=== PATIENT | male | born 1940 ===

== ENCOUNTER 2017-01-06 07:56 | Emergency (ER) | payer MEDICARE ==
[2017-01-06 08:16] VITALS: RESP 16; O2SAT 98
[2017-01-06] MEDS ORDERED: Sodium Chloride 0.9% 500 ML IV ONE (08:23)
--- NOTE | 2017-01-06 08:25 | ED PDOC ---
HPI: Abdomen Time Seen by Provider: 01/06/17 08:17 Chief Complaint (Nursing): GI Problem Chief Complaint (Provider): Generalized abdominal pain History Per: Patient History/Exam Limitations: no limitations Onset/Duration Of Symptoms: Days (1) Outside of [place] travel?: No Current Symptoms Are (Timing): Still Present Severity: Moderate Location Of Pain/Discomfort: RLQ Quality Of Discomfort: "Pain", Gas Associated Symptoms: denies: Nausea, Vomiting, Diarrhea, Urinary Symptoms Additional History Per: Patient Additional Complaint(s): The pt. is a 76yo male with PMHx of HTN, CAD presents to the ED for evaluation of abdominal pain for the past day. Pt reports feeling gassy debora mild pain in his right lower quadrant. Denies any urinary symptoms, nausea, vomiting, diarrhea. States he took Pepto Bismol with little relief. Offers no additional medical complaints. PMD: Dr. Ashby Past Medical History Reviewed: Historical Data, Nursing Documentation, Vital Signs Vital Signs: Last Vital Signs Temp 98.9 F 01/06/17 08:14 Pulse 53 L 01/06/17 09:06 Resp 16 01/06/17 08:14 BP 144/87 01/06/17 08:14 Pulse Ox 98 01/06/17 09:06 - Medical History PMH: CAD, HTN Denies: HIV, Chronic Kidney Disease - Surgical History Surgical History: Appendectomy - Family History Family History: States: Unknown Family Hx - Home Medications Home Medications: Ambulatory Orders Medication Instructions Recorded Aspirin [Aspirin Chewable] 81 mg PO DAILY #0 chew 05/17/16 Lipase/Protease/Amylase [Betty Fisher 1 each PO TID #0 capsule. 05/17/16 24,000 Units Capsule] Tamsulosin [Flomax] 0.4 mg PO DAILY #0 cap 05/17/16 amLODIPine [Norvasc] 5 mg PO DAILY #0 tab 05/17/16 Acetaminophen [Tylenol Extra 500 mg PO Q6 #20 tablet 08/07/16 Strength] Amoxicillin 875 mg PO BID #14 tablet 08/07/16 Guaifenesin [Mucinex] 600 mg PO BID #20 tab.er.12h 08/07/16 Famotidine [Pepcid] 20 mg PO DAILY #20 tab 01/06/17 - Allergies Allergies/Adverse Reactions: Allergies Allergy/AdvReac Type Severity Reaction Status Date / Time No Known Allergies Allergy Verified 08/07/16 12:24 Review of Systems ROS Statement: Except As Marked, All Systems Reviewed And Found Negative Gastrointestinal: Positive for: Abdominal Pain. Negative for: Nausea, Vomiting , Diarrhea, Hematochezia Genitourinary Male: Negative for: Dysuria, Frequency Physical Exam - Reviewed Nursing Documentation Reviewed: Yes Vital Signs Reviewed: Yes - Physical Exam Appears: Positive for: Well, Non-toxic, No Acute Distress Head Exam: Positive for: ATRAUMATIC, NORMAL INSPECTION, NORMOCEPHALIC Skin: Positive for: Normal Color Eye Exam: Positive for: Normal appearance Neck: Positive for: Normal Cardiovascular/Chest: Positive for: Regular Rate, Rhythm Respiratory: Negative for: Respiratory Distress Gastrointestinal/Abdominal: Positive for: Soft, Tenderness (non-focal tenderness ) Neurologic/Psych: Positive for: Alert, Oriented - Laboratory Results Result Diagrams: 01/06/17 08:50 01/06/17 08:50 - ECG ECG: Positive for: Interpreted By Me, Viewed By Me ECG Rhythm: Positive for: Sinus Bradycardia. Negative for: ST/T Changes Rate: 53 O2 Sat by Pulse Oximetry: 98 (RA) Pulse Ox Interpretation: Normal Medical Decision Making Medical Decision Making: Time: 819 Impression: Abdominal pain Plan: * EKG * CMP * Lipase * Troponin I * CBC * Toradol * IV Fluids Scribe Attestation: Documented by Toña Rucker acting as a scribe for José Miguel Horan DO. Provider Attestation: All medical record entries made by the Scribe were at my direction and personally dictated by me. I have reviewed the chart and agree that the record accurately reflects my personal performance of the history, physical exam, medical decision making, and the department course for this patient. I have also personally directed, reviewed, and agree with the discharge instructions and disposition. Disposition - Clinical Impression Clinical Impression: Abdominal pain - Disposition Referrals: Nasir Branch MD, PhD [Staff Provider] - [facility] [Outside] [facility] [employer] [Outside] Disposition Time: 12:10 Condition: STABLE Additional Instructions: please follow up with clinic/your doctor and specialist. return to er with worsening symptoms or concerns Prescriptions: Famotidine [Pepcid] 20 mg PO DAILY #20 tab Instructions: Abdominal Pain (ED) Print Language: SWEDISH
[2017-01-06 09:05] LABS: BASO % 0.9 % (0.0-2.0); EOS # 0.2 K/uL (0.0-0.7); EOS % 3.4 % (0.0-4.0); HEMATOCRIT 44.4 % (35.0-51.0); LYMPH # 1.2 K/uL (1.0-4.3); LYMPH % 24.3 % (20.0-40.0); MEAN CELL VOLUME 92.7 fl (80.0-94.0); MEAN CORPUSCULAR HEMOGLOBIN 31.4 pg (27.0-31.0); MEAN CORPUSCULAR HGB CONC 33.9 g/dL (33.0-37.0); MONO # 0.5 K/uL (0.0-0.8); MONO % 10.7 % (0.0-10.0); NEUT % 60.7 % (50.0-75.0); NRBC % 0.2 % (0.0-0.0); RED CELL DISTRIBUTION WIDTH 14.7 % (11.5-14.5)
[2017-01-06 09:08] VITALS: PULSE 53
[2017-01-06 09:12] LABS: ALB/GLOB RATIO 1.4 (1.0-2.1); ALKALINE PHOSPHATASE 76 U/L (38-126); ALT/SGPT 39 U/L (21-72); AST/SGOT 40 U/L (17-59); BILIRUBIN,TOTAL 0.7 mg/dl (0.2-1.3); BLOOD UREA NITROGEN 22 mg/dl (9-20); CALCIUM 9.2 mg/dL (8.4-10.2); CARBON DIOXIDE 25 mmol/L (22-30); CHLORIDE 105 mmol/L (98-107); GFR AFRICAN-AMERICAN > 60; GLUCOSE,RANDOM 88 mg/dL (75-110); LIPASE 120 U/L (23-300); POTASSIUM 4.5 MMOL/L (3.6-5.0); SODIUM 140 mmol/l (132-148)
[2017-01-06 10:35] LABS: RBC URINE 3 /hpf (0-3); URINE BACTERIA RARE (<OCC); URINE BILIRUBIN NEGATIVE (NEGATIVE); URINE BLOOD NEGATIVE (NEGATIVE); URINE COLOR STRAW (YELLOW); URINE GLUCOSE (UA) NEG (Normal); URINE KETONE NEGATIVE (NEGATIVE); URINE LEUKOCYTE ESTERASE NEG Leu/uL (Negative); URINE PROTEIN NEGATIVE (NEGATIVE); URINE UROBILINOGEN 0.2-1.0 mg/dL (0.2-1.0); WBC URINE 1 /hpf (0-5)
[2017-01-06] MEDS ORDERED: Iohexol 300 100 ML IJ ONE (10:43)
[2017-01-06] MEDS ORDERED: Sodium Chloride 0.9% 50 ML IV ONE (10:44)
--- NOTE | 2017-01-06 12:11 | CT ---
PROCEDURE: CT Abdomen and Pelvis with contrast HISTORY: abd pain, diarrhea COMPARISON: None. TECHNIQUE: Contrast dose: 100 cc of Omnipaque 300 Radiation dose: Total exam DLP = 777 mGy-cm. This CT exam was performed using one or more of the following dose reduction techniques: Automated exposure control, adjustment of the mA and/or kV according to patient size, and/or use of iterative reconstruction technique. FINDINGS: LOWER THORAX: Moderate hiatal hernia. LIVER: 3 centimeter left hepatic cyst.. No gross lesion or ductal dilatation. GALLBLADDER AND BILE DUCTS: Unremarkable. PANCREAS: Unremarkable. No gross lesion or ductal dilatation. SPLEEN: Unremarkable. ADRENALS: Unremarkable. No mass. KIDNEYS AND URETERS: Unremarkable. No hydronephrosis. No solid mass. VASCULATURE: Unremarkable. No aortic aneurysm. BOWEL: Colonic diverticulosis.. No obstruction. No gross mural thickening. APPENDIX: Normal appendix. PERITONEUM: Unremarkable. No free fluid. No free air. LYMPH NODES: Unremarkable. No enlarged lymph nodes. BLADDER: Unremarkable. REPRODUCTIVE: Prostate enlargement. BONES: No acute fracture. OTHER FINDINGS: None. IMPRESSION: No acute pathology.
[2017-01-06 12:12] VITALS: BP 142/77; TEMP 98.6
--- NOTE | 2017-01-07 08:48 | CARD ---
APPROVED REPORT EKG Measurement Heart [id number] <Conclusion> Sinus bradycardia Otherwise normal ECG
== END 2017-01-06 12:29 | disposition home or self-care (01) ==
LOC: H.ER 07:56
DX: R10.9 Unspecified abdominal pain (principal); R19.7 Diarrhea, unspecified; I10 Essential (primary) hypertension; I25.10 Atherosclerotic heart disease of native coronary artery without angina pectoris; Z79.82 Long term (current) use of aspirin
CPT/HCPCS: 74177; 80053; 81003; 83690; 84484; 85025; 93005; 96374; 99284; J1885; J7040; Q9967

== ENCOUNTER 2017-01-11 11:17 | Emergency (ER) | payer MEDICARE ==
[2017-01-11 11:21] VITALS: BMI 29.2
--- NOTE | 2017-01-11 12:34 | ED PDOC ---
HPI: General Adult Time Seen by Provider: 01/11/17 11:44 Chief Complaint (Nursing): Dizziness/Lightheaded Chief Complaint (Provider): Dizziness/Lightheaded History Per: Patient History/Exam Limitations: no limitations Onset/Duration Of Symptoms: Hrs (x2-3 hours) Current Symptoms Are (Timing): Better Additional Complaint(s): 76 y/o male presents to the emergency department with a complaint of a dizziness with lightheadedness x2-3 hours yesterday, 01/10/2017. Associated with loss of coordination with movement because as he was walking outside he noted that his body scraped against a parked car. Patient states symptoms had resolved since. Denies chest pain, shortness of breath, and abdominal pain. Of note, patient was seen in the ER on 01/06/2017 and completed an Abdomen/Pelvis CT Scan and was then discharged. PMD: Dr. Ashby Past Medical History Reviewed: Historical Data, Nursing Documentation, Vital Signs Vital Signs: Last Vital Signs Temp 98.2 F 01/11/17 11:21 Pulse 73 01/11/17 11:21 Resp 20 01/11/17 11:21 BP 118/85 01/11/17 11:21 Pulse Ox 96 01/11/17 15:11 - Medical History PMH: CAD, HTN Denies: HIV, Chronic Kidney Disease Other PMH: Angina - Surgical History Surgical History: Appendectomy - Family History Family History: States: Diabetes - Social History Current smoker - smoking cessation education provided: No Alcohol: None Drugs: Denies - Home Medications Home Medications: Ambulatory Orders Medication Instructions Recorded Aspirin [Aspirin Chewable] 81 mg PO DAILY #0 chew 05/17/16 Lipase/Protease/Amylase [Betty Fisher 1 each PO TID #0 capsule. 05/17/16 24,000 Units Capsule] Tamsulosin [Flomax] 0.4 mg PO DAILY #0 cap 05/17/16 amLODIPine [Norvasc] 5 mg PO DAILY #0 tab 05/17/16 Acetaminophen [Tylenol Extra 500 mg PO Q6 #20 tablet 08/07/16 Strength] Amoxicillin 875 mg PO BID #14 tablet 08/07/16 Guaifenesin [Mucinex] 600 mg PO BID #20 tab.er.12h 08/07/16 Famotidine [Pepcid] 20 mg PO DAILY #20 tab 01/06/17 - Allergies Allergies/Adverse Reactions: Allergies Allergy/AdvReac Type Severity Reaction Status Date / Time No Known Allergies Allergy Verified 08/07/16 12:24 Review of Systems ROS Statement: Except As Marked, All Systems Reviewed And Found Negative Cardiovascular: Negative for: Chest Pain Respiratory: Negative for: Shortness of Breath Gastrointestinal: Negative for: Abdominal Pain Neurological: Positive for: Dizziness (described as lightheadedness) Physical Exam - Reviewed Nursing Documentation Reviewed: Yes Vital Signs Reviewed: Yes - Physical Exam Appears: Positive for: Non-toxic, No Acute Distress Head Exam: Positive for: ATRAUMATIC, NORMOCEPHALIC Skin: Positive for: Normal Color, Warm, Dry Neck: Positive for: Normal, Supple Cardiovascular/Chest: Positive for: Regular Rate, Rhythm. Negative for: Murmur Respiratory: Positive for: Normal Breath Sounds. Negative for: Accessory Muscle Use, Respiratory Distress Neurologic/Psych: Positive for: Alert (nonfocal nuero exam), Oriented, Motor/ Sensory Deficits (Grossly intact). Negative for: Other (Negative Romberg's exam ) - Laboratory Results Result Diagrams: 01/11/17 12:35 01/11/17 12:35 - ECG O2 Sat by Pulse Oximetry: 96 (RA) Pulse Ox Interpretation: Normal Medical Decision Making Medical Decision Making: Time: 11:44 Initial impression: Dizziness with loss of coordination with possible TIA Initial plan: --Head w/o contrast (CT) --Electrocardiogram Stat --B-Type Natriuretic Peptide --COMP Metabolic Panel --Creatine Phosphokinase --Troponin I Stat --EKG-ED (EDNURTX) Stat --CBC w/ differential --Partial Thromboplastin Time COAG --Prothrombin Time (COAG) --Chest Portable (RAD) --Chest Two Views (PA/LAT) (RAD) --Channel Process Plant Operator CONT --IV Insertion --AccuCheck --Urinalysis Stat --Revaluation Time: 12:42 --Head CT FINDINGS: HEMORRHAGE: No acute parenchymal, subarachnoid or extra-axial hemorrhage. BRAIN: Mild chronic periventricular white matter ischemic changes are present. . Note that the possibility of a small on early acute infarct may be CT occult . Clinical correlation recommended to determine whether additional imaging should be performed if patient is eligible for tPA therapy. Mild to moderate central volume loss evidenced by slight disproportionate enlargement of the ventricles as compared sulci. Vascular calcifications are present. VENTRICLES: No obstructive type hydrocephalus. CALVARIUM: There are no acute calvarial fractures. PARANASAL SINUSES: Unremarkable as visualized. No significant inflammatory changes. MASTOID AIR CELLS: Unremarkable as visualized. No inflammatory changes. OTHER FINDINGS: None. IMPRESSION: No acute intracranial hemorrhage. Mild chronic white matter ischemic changes. Note that the possibility of a small acute infarct cannot be excluded based on this study. Time: 12:59 --Chest X-ray (RAD) FINDINGS: LUNGS: Poor inspiration with low lung volumes, and mild crowded bronchovascular markings/bibasilar atelectasis. PLEURA: No significant pleural effusion identified. No pneumothorax apparent. CARDIOVASCULAR: Normal. OSSEOUS STRUCTURES: Minor chronic anterior wedge deformities of a few mid thoracic segments. Mild multilevel degenerative spondylosis of the thoracic spine VISUALIZED UPPER ABDOMEN: Normal. OTHER FINDINGS: None. IMPRESSION: Poor inspiration with low lung volumes, and mild crowded bronchovascular markings/bibasilar atelectasis. 3:21 PM--I discussed pt with PMD Dr. Ashby and with neurologist Dr. Jennifer Cummins. State if pt not orthostatic, then d/c home and follow up in their office. Scribe Attestation: Documented by Emelina Benjamin, acting as a scribe for Javier Judd MD. Provider Scribe Attestation: All medical record entries made by the Scribe were at my direction and personally dictated by me. I have reviewed the chart and agree that the record accurately reflects my personal performance of the history, physical exam, medical decision making, and the department course for this patient. I have also personally directed, reviewed, and agree with the discharge instructions and disposition. Disposition - Clinical Impression Clinical Impression: Dizziness Counseled Patient/Family Regarding: Studies Performed, Diagnosis, Need For Followup - Disposition Referrals: Jamil Cummins MD [Staff Provider] - Moiz Ashby MD [Staff Provider] - Disposition: Routine/Home Disposition Time: 14:54 Condition: STABLE Additional Instructions: Mr. Mosqueda, thank you for letting us take care of you today. Return to the ER if your symptoms worsen or if any problems or if any new symptoms. You need to follow up with two physicians: 1) Dr. Ashby - call his office to make an appointment 2) Dr. Ara Cummins (neurologist) - call his office to make an appointment These physicians phone numbers are listed below. Drink plenty of fluids--you are slightly dehydrated. Instructions: Lightheadedness (ED), Dizziness (ED) Forms: [facility] (Citizen [place]) Print Language: TELUGU - POA Present On Arrival: None
--- NOTE | 2017-01-11 12:44 | CT ---
PROCEDURE: CT HEAD WITHOUT CONTRAST. HISTORY: dizziness/trouble coordinating movements yesterday COMPARISON: Comparison made with CT scan brain 05/16/2016. TECHNIQUE: Axial computed tomography images were obtained through the head/brain without intravenous contrast. Radiation dose: Total exam DLP = 805.15 mGy-cm. This CT exam was performed using one or more of the following dose reduction techniques: Automated exposure control, adjustment of the mA and/or kV according to patient size, and/or use of iterative reconstruction technique. FINDINGS: HEMORRHAGE: No acute parenchymal, subarachnoid or extra-axial hemorrhage. BRAIN: Mild chronic periventricular white matter ischemic changes are present. . Note that the possibility of a small on early acute infarct may be CT occult . Clinical correlation recommended to determine whether additional imaging should be performed if patient is eligible for tPA therapy. Mild to moderate central volume loss evidenced by slight disproportionate enlargement of the ventricles as compared sulci. Vascular calcifications are present. VENTRICLES: No obstructive type hydrocephalus. CALVARIUM: There are no acute calvarial fractures. PARANASAL SINUSES: Unremarkable as visualized. No significant inflammatory changes. MASTOID AIR CELLS: Unremarkable as visualized. No inflammatory changes. OTHER FINDINGS: None. IMPRESSION: No acute intracranial hemorrhage. Mild chronic white matter ischemic changes. Note that the possibility of a small acute infarct cannot be excluded based on this study.
[2017-01-11 12:50] LABS: BASO # 0.1 K/uL (0.0-0.2); BASO % 0.9 % (0.0-2.0); EOS # 0.1 K/uL (0.0-0.7); EOS % 2.3 % (0.0-4.0); HEMATOCRIT 42.6 % (35.0-51.0); LYMPH # 1.3 K/uL (1.0-4.3); LYMPH % 20.5 % (20.0-40.0); MEAN CELL VOLUME 92.2 fl (80.0-94.0); MEAN CORPUSCULAR HEMOGLOBIN 31.4 pg (27.0-31.0); MEAN PLATELET VOLUME 9.3 fl (7.2-11.7); MONO # 0.7 K/uL (0.0-0.8); MONO % 11.7 % (0.0-10.0); NEUT # 4.1 K/uL (1.8-7.0); NEUT % 64.6 % (50.0-75.0); RED CELL DISTRIBUTION WIDTH 14.8 % (11.5-14.5); WHITE BLOOD COUNT 6.3 K/uL (4.8-10.8)
--- NOTE | 2017-01-11 13:01 | RAD ---
HISTORY: dizziness COMPARISON: Comparison chest 05/16/2016 TECHNIQUE: Chest PA and lateral FINDINGS: LUNGS: Poor inspiration with low lung volumes, and mild crowded bronchovascular markings/bibasilar atelectasis. PLEURA: No significant pleural effusion identified. No pneumothorax apparent. CARDIOVASCULAR: Normal. OSSEOUS STRUCTURES: Minor chronic anterior wedge deformities of a few mid thoracic segments. Mild multilevel degenerative spondylosis of the thoracic spine VISUALIZED UPPER ABDOMEN: Normal. OTHER FINDINGS: None. IMPRESSION: Poor inspiration with low lung volumes, and mild crowded bronchovascular markings/bibasilar atelectasis.
[2017-01-11 13:03] LABS: PARTIAL THROMBOPLASTIN TIME 27.9 SECONDS (23.3-32.5)
[2017-01-11 13:05] LABS: ALB/GLOB RATIO 1.5 (1.0-2.1); ALKALINE PHOSPHATASE 53 U/L (38-126); ALT/SGPT 37 U/L (21-72); AST/SGOT 32 U/L (17-59); BILIRUBIN,TOTAL 0.4 mg/dl (0.2-1.3); BLOOD UREA NITROGEN 23 mg/dl (9-20); CALCIUM 9.6 mg/dL (8.4-10.2); CARBON DIOXIDE 26 mmol/L (22-30); CHLORIDE 104 mmol/L (98-107); GFR AFRICAN-AMERICAN 51; GLUCOSE,RANDOM 104 mg/dL (75-110); POTASSIUM 3.9 MMOL/L (3.6-5.0); SODIUM 143 mmol/l (132-148); TOTAL PROTEIN 7.5 G/DL (6.3-8.2)
[2017-01-11 19:42] VITALS: BP 126/75; PULSE 71; RESP 18; TEMP 98.4; O2SAT 98
--- NOTE | 2017-01-11 22:00 | CARD ---
APPROVED REPORT EKG Measurement Heart [id number] [id number] <Conclusion> Normal sinus rhythm Normal ECG
== END 2017-01-11 15:40 | disposition home or self-care (01) ==
LOC: H.ER 11:17
DX: R42 Dizziness and giddiness (principal); E86.0 Dehydration

== ENCOUNTER 2017-02-17 09:07 | Inpatient (IN) | payer MEDICARE ==
[2017-02-17 09:08] VITALS: BMI 29.2
[2017-02-17] MEDS ORDERED: Sodium Chloride 0.9% 1,000 ML IV STA (10:13)
[2017-02-17 10:36] LABS: BASO # 0.1 K/uL (0.0-0.2); BASO % 0.4 % (0.0-2.0); EOS # 0.1 K/uL (0.0-0.7); EOS % 0.3 % (0.0-4.0); HEMATOCRIT 38.5 % (35.0-51.0); LYMPH # 0.8 K/uL (1.0-4.3); LYMPH % 5.4 % (20.0-40.0); MEAN CELL VOLUME 91.3 fl (80.0-94.0); MEAN CORPUSCULAR HEMOGLOBIN 31.3 pg (27.0-31.0); MEAN CORPUSCULAR HGB CONC 34.3 g/dL (33.0-37.0); MEAN PLATELET VOLUME 9.4 fl (7.2-11.7); MONO # 0.7 K/uL (0.0-0.8); MONO % 4.9 % (0.0-10.0); NEUT # 13.6 K/uL (1.8-7.0); NRBC % 0.1 % (0.0-0.0); PLATELET COUNT 174 K/uL (130-400); RED CELL DISTRIBUTION WIDTH 15.3 % (11.5-14.5); WHITE BLOOD COUNT 15.3 K/uL (4.8-10.8)
[2017-02-17 10:40] LABS: RBC URINE 10 /hpf (0-3); URINE BACTERIA MANY (<OCC); URINE BILIRUBIN NEGATIVE (NEGATIVE); URINE BLOOD SMALL (NEGATIVE); URINE COLOR YELLOW (YELLOW); URINE GLUCOSE (UA) NEG (Normal); URINE KETONE 20 mg/dL (NEGATIVE); URINE LEUKOCYTE ESTERASE LARGE Leu/uL (Negative); URINE PROTEIN 100 mg/dL (NEGATIVE); URINE UROBILINOGEN 0.2-1.0 mg/dL (0.2-1.0); WBC URINE 229 /hpf (0-5)
[2017-02-17 11:27] LABS: ALB/GLOB RATIO 1.1 (1.0-2.1); ALKALINE PHOSPHATASE 58 U/L (38-126); ALT/SGPT 42 U/L (21-72); AST/SGOT 25 U/L (17-59); BILIRUBIN,TOTAL 0.5 mg/dl (0.2-1.3); BLOOD UREA NITROGEN 25 mg/dl (9-20); CALCIUM 8.3 mg/dL (8.4-10.2); CARBON DIOXIDE 23 mmol/L (22-30); CHLORIDE 103 mmol/L (98-107); GFR AFRICAN-AMERICAN > 60; GLUCOSE,RANDOM 160 mg/dL (75-110); POTASSIUM 3.7 MMOL/L (3.6-5.0); SODIUM 135 mmol/l (132-148); TOTAL PROTEIN 6.7 G/DL (6.3-8.2)
[2017-02-17 12:25] LABS: NEUTROPHIL 91 % (42-75); TOTAL CELLS COUNTED 100
[2017-02-17 13:12] LABS: VENOUS BLOOD GAS BASE EXCESS 6.3 mmol/L (0.0-2.0); VENOUS BLOOD GAS PCO2 23 mmHg (40-60); VENOUS BLOOD PH 7.66 (7.32-7.43)
--- NOTE | 2017-02-17 13:28 | ED PDOC ---
HPI: Male Pain Time Seen by Provider: 02/17/17 10:02 Chief Complaint (Nursing): Male Genitourinary Chief Complaint (Provider): Pain on urination x 2 days, no fever History Per: Patient History/Exam Limitations: no limitations Onset/Duration Of Symptoms: Days Current Symptoms Are (Timing): Still Present Quality Of Discomfort: Burning Associated Symptoms: Other (Eating and drinking normal at home). denies: Fever , Nausea, Vomiting, Loss Of Appetite Past Medical History Reviewed: Historical Data, Nursing Documentation, Vital Signs Vital Signs: Last Vital Signs Temp 99.6 F 02/17/17 09:15 Pulse 101 H 02/17/17 09:15 Resp 19 02/17/17 09:15 BP 124/64 02/17/17 09:15 Pulse Ox 95 02/17/17 09:15 - Medical History PMH: CAD, HTN Denies: HIV, Chronic Kidney Disease - Surgical History Surgical History: Appendectomy - Family History Family History: States: Unknown Family Hx, Diabetes - Living Arrangements Living Arrangements: With Family - Social History Current smoker - smoking cessation education provided: No Alcohol: None Drugs: Denies - Home Medications Home Medications: Ambulatory Orders Medication Instructions Recorded amLODIPine [Norvasc] 5 mg PO DAILY #0 tab 05/17/16 Ciprofloxacin [Cipro] 500 mg PO BID #14 tab 02/17/17 - Allergies Allergies/Adverse Reactions: Allergies Allergy/AdvReac Type Severity Reaction Status Date / Time No Known Allergies Allergy Verified 02/17/17 09:36 Review of Systems ROS Statement: Except As Marked, All Systems Reviewed And Found Negative Constitutional: Negative for: Fever, Chills Genitourinary Male: Positive for: Dysuria Physical Exam - Reviewed Nursing Documentation Reviewed: Yes Vital Signs Reviewed: Yes - Physical Exam Appears: Positive for: Well, Non-toxic, No Acute Distress Head Exam: Positive for: ATRAUMATIC, NORMAL INSPECTION, NORMOCEPHALIC Skin: Positive for: Normal Color, Warm, DRY Eye Exam: Positive for: Normal appearance ENT: Positive for: Normal ENT Inspection Neck: Positive for: Normal, Painless ROM Cardiovascular/Chest: Positive for: Regular Rate, Rhythm Respiratory: Positive for: Normal Breath Sounds. Negative for: Accessory Muscle Use, Respiratory Distress Gastrointestinal/Abdominal: Positive for: Normal Exam, Bowel Sounds, Soft. Negative for: Tenderness Back: Positive for: Normal Inspection. Negative for: L CVA Tenderness, R CVA Tenderness Extremity: Positive for: Normal ROM Neurologic/Psych: Positive for: Alert, Oriented - Laboratory Results Result Diagrams: 02/17/17 10:20 02/17/17 10:55 - ECG O2 Sat by Pulse Oximetry: 95 Medical Decision Making Medical Decision Making: Discussed importance of f/u with Dr. Tyson in 1-2 days and return to ER for fever, N/V, worsening pain, etc. Discussed with Dr. Ashby's partner, Dr. Coleman who states he can see him in the office tomorrow or saturday. Disposition - Clinical Impression Clinical Impression: Urinary tract infection - Patient ED Disposition Is Patient to be Admitted: No Counseled Patient/Family Regarding: Diagnosis, Need For Followup, Rx Given - Disposition Referrals: Moiz Ashby MD [Staff Provider] - Bertrand Coleman MD [Staff Provider] - Disposition: Routine/Home Disposition Time: 13:29 Condition: GOOD Prescriptions: Ciprofloxacin [Cipro] 500 mg PO BID #14 tab Instructions: Urinary Tract Infection in Men (ED) Print Language: SLOVENIAN
--- NOTE | 2017-02-17 15:09 | CP.PCM.HP ---
History of Present Illness - History of Present Illness History of Present Illness: 76 yo male with history of HTN brought by daughter because of dysuria of 3 days duration associated with feeling warm and diaphoresis the last 2 days. He admitted feeling febrile but was unable to get his body temperature. Present on Admission - Present on Admission Any Indicators Present on Admission: No History of DVT/PE: No History of Uncontrolled Diabetes: No Urinary Catheter: No Decubitus Ulcer Present: No Review of Systems - Review of Systems Systems not reviewed;Unavailable: Acuity of Condition (from those mentioned above, 12 point system review were negative by me) Past Patient History - Infectious Disease Hx of Infectious Diseases: None - Tetanus Immunizations Tetanus Immunization: Unknown - Past Medical History & Family History Past Medical History?: Yes Pertinent Family History: mother and brother had diabetes - Past Social History Smoking Status: Never Smoked Alcohol: None Drugs: Denies Home Situation {Lives}: With Family - CARDIAC Hx Hypertension: Yes - PULMONARY Hx Respiratory Disorders: No - NEUROLOGICAL Hx Neurological Disorder: No - HEENT Hx HEENT Problems: No - RENAL Hx Chronic Kidney Disease: No - ENDOCRINE/METABOLIC Hx Endocrine Disorders: No - HEMATOLOGICAL/ONCOLOGICAL Hx Human Immunodeficiency Virus (HIV): No - INTEGUMENTARY Hx Dermatological Problems: No - MUSCULOSKELETAL/RHEUMATOLOGICAL Hx Musculoskeletal Disorders: No Hx Falls: No - GASTROINTESTINAL Hx Gastrointestinal Disorders: No - GENITOURINARY/GYNECOLOGICAL Hx Genitourinary Disorders: Yes Hx Prostate Problems: Yes (BPH) - PSYCHIATRIC Hx Psychophysiologic Disorder: No Hx Substance Use: No - SURGICAL HISTORY Hx Appendectomy: Yes - ANESTHESIA Hx Anesthesia: Yes Hx Anesthesia Reactions: No Meds Home Medications: Home Medication List Medication Instructions Recorded Confirmed Type Ciprofloxacin [Cipro] 500 mg PO BID #14 tab 02/17/17 Rx Allergies/Adverse Reactions: Allergies Allergy/AdvReac Type Severity Reaction Status Date / Time No Known Allergies Allergy Verified 02/17/17 09:36 Physical Exam - Constitutional Appears: No Acute Distress - Head Exam Head Exam: ATRAUMATIC - Eye Exam Eye Exam: absent: Scleral icterus - ENT Exam ENT Exam: Mucous Membranes Moist - Neck Exam Neck exam: Negative for: Meningismus - Respiratory Exam Respiratory Exam: absent: Rhonchi, Wheezes, Respiratory Distress - Cardiovascular Exam Cardiovascular Exam: REGULAR RHYTHM, +S1, +S2 - GI/Abdominal Exam GI & Abdominal Exam: Soft. absent: Tenderness - Rectal Exam Rectal Exam: Deferred - Extremities Exam Extremities exam: Negative for: calf tenderness, pedal edema - Back Exam Back exam: NORMAL INSPECTION, rash noted, tenderness - Neurological Exam Neurological exam: Alert, Oriented x3 - Psychiatric Exam Psychiatric exam: Normal Affect - Skin Skin Exam: Dry, Intact Results - Vital Signs Recent Vital Signs: Last Vital Signs Temp 102 F H 02/17/17 14:19 Pulse 88 02/17/17 13:35 Resp 19 02/17/17 13:35 BP 143/73 02/17/17 13:35 Pulse Ox 98 02/17/17 13:35 - Labs Result Diagrams: 02/17/17 10:20 02/17/17 10:55 Assessment & Plan (1) Sepsis Status: Acute Comment: place on observation in med/surg. Tylenol 650mg PO q 4hrs prn for fever. blood and urine culture. continue Rocephin 1gm IV daily (2) Urinary tract infection Status: Acute Comment: continue Rocephin 1gm IV daily. follow up blood and urine culture (3) HTN (hypertension) Status: Acute Comment: BP stable. on Norvasc 5mg PO daily (4) DVT prophylaxis Status: Acute Comment: Lovenox 40mg SC daily
[2017-02-18 06:20] LABS: BASO % 0.3 % (0.0-2.0); BLOOD UREA NITROGEN 25 mg/dl (9-20); CALCIUM 8.2 mg/dL (8.4-10.2); CARBON DIOXIDE 23 mmol/L (22-30); CHLORIDE 109 mmol/L (98-107); EOS # 0.2 K/uL (0.0-0.7); EOS % 1.2 % (0.0-4.0); GFR AFRICAN-AMERICAN > 60; GLUCOSE,RANDOM 107 mg/dL (75-110); HEMATOCRIT 37.9 % (35.0-51.0); LYMPH % 6.9 % (20.0-40.0); MEAN CELL VOLUME 92.6 fl (80.0-94.0); MEAN CORPUSCULAR HEMOGLOBIN 31.2 pg (27.0-31.0); MEAN CORPUSCULAR HGB CONC 33.7 g/dL (33.0-37.0); MEAN PLATELET VOLUME 9.1 fl (7.2-11.7); MONO # 1.2 K/uL (0.0-0.8); MONO % 8.3 % (0.0-10.0); NEUT # 12.3 K/uL (1.8-7.0); NEUT % 83.3 % (50.0-75.0); RED CELL DISTRIBUTION WIDTH 14.9 % (11.5-14.5); SODIUM 139 mmol/l (132-148); WHITE BLOOD COUNT 14.7 K/uL (4.8-10.8)
[2017-02-18] MEDS: Enoxaparin 40 mg Syringe SC SCH (08:59)
--- NOTE | 2017-02-18 11:36 | CP.PCM.PN ---
Subjective - Date & Time of Evaluation Date of Evaluation: 02/18/17 Time of Evaluation: 11:10 - Subjective Subjective: Informed by RN that the patient climbed up on a chair and attempted to move his Television w/c was suspended on the wall and while getting off the chair, he slipped and fell and landed on his left arm. complains of left arm pain no open wound denies head trauma but RN found him lying on the floor Had feber last night still with dysuria denies CP no SOB no abdominal pain Objective - Vital Signs/Intake and Output Vital Signs (last 24 hours): Temp Pulse Resp BP Pulse Ox 98.5 F 66 18 122/72 95 02/18/17 08:39 02/18/17 08:59 02/18/17 08:39 02/18/17 08:59 02/18/17 08:39 - Medications Medications: Current Medications Acetaminophen (Tylenol 325mg Tab) 650 mg PO Q4 PRN PRN Reason: Fever >100.4 F Acetaminophen (Tylenol 325mg Tab) 650 mg PO Q6 PRN PRN Reason: Pain, Mild (1-3) Last Admin: 02/17/17 22:21 Dose: 650 mg Amlodipine Besylate (Norvasc) 5 mg PO DAILY [facility] Last Admin: 02/18/17 08:59 Dose: 5 mg Enoxaparin Sodium (Lovenox) 40 mg SC DAILY [facility] PRN Reason: Protocol Last Admin: 02/18/17 08:59 Dose: 40 mg Ceftriaxone Sodium 1 gm/ (Sodium Chloride) 100 mls @ 100 mls/hr IVPB DAILY [facility] - Labs Labs: 02/18/17 05:30 02/18/17 05:30 - Constitutional Appears: No Acute Distress - Head Exam Head Exam: NORMAL INSPECTION, NORMOCEPHALIC - Eye Exam Eye Exam: EOMI, Normal appearance Pupil Exam: NORMAL ACCOMODATION - ENT Exam ENT Exam: Mucous Membranes Moist, Normal External Ear Exam - Neck Exam Neck Exam: Full ROM. absent: Meningismus - Respiratory Exam Respiratory Exam: NORMAL BREATHING PATTERN. absent: Respiratory Distress - Cardiovascular Exam Cardiovascular Exam: REGULAR RHYTHM, +S1, +S2 - GI/Abdominal Exam GI & Abdominal Exam: Soft, Normal Bowel Sounds. absent: Tenderness - Extremities Exam Extremities Exam: Normal Capillary Refill. absent: Calf Tenderness, Pedal Edema Additional comments: left arm upper pain and tenderness on palpation pulses full - Back Exam Back Exam: Full ROM. absent: CVA tenderness (L), CVA tenderness (R) - Neurological Exam Neurological Exam: Alert, Awake, CN II-XII Intact, Oriented x3 Neuro motor strength exam: Right Upper Extremity: 5, Left Lower Extremity: 5, Right Lower Extremity: 5 - Psychiatric Exam Psychiatric exam: Normal Affect, Normal Mood - Skin Skin Exam: Dry, Normal Color, Warm Assessment and Plan (1) Sepsis Status: Acute (2) Urinary tract infection Status: Acute (3) Left humeral fracture Status: Acute (4) HTN (hypertension) Status: Chronic (5) DVT prophylaxis Status: Acute - Assessment and Plan (Free Text) Assessment: 76 y/o gent with hx of HTN, BPH, came in because of dysuria and fever, found to have UTI. He was admitted in [facility] Surg, started on IVF hydration and IV Ceftraixone. Today , he stood on a chair in an attempt to reposition the television in his room ( TV suspended up on the wall) and he fell . He sustained Left Humeral fracture. (1) Sepsis sec to UTI Status: Acute Pt came in febrile to 102, tachycardic normal lactate Urinalysis showed Pyuria, + leukoest Urine c/s Blood c/s Increase Ceftriaxone to 1 gram bid (2) Urinary tract infection Status: Acute (3) Left humeral fracture Status: Acute Xray of hemurus showed fracture Shoulder Xray, Elbow xray ; neg CVT of head and CT scpine : neg Ortho consult : Dr Womack Pt's daughter informed of fall and , xray result and treatment plan Cardio consult for preop eval ECHO (4) HTN (hypertension) Status: Chronic cont Norvacs (5) BPH - start Floamx (6) DVT prophylaxis Status: Acute Lovenox
--- NOTE | 2017-02-18 13:31 | CT ---
PROCEDURE: CT HEAD WITHOUT CONTRAST. HISTORY: Fall COMPARISON: Noncontrast head CT performed 01/11/17 TECHNIQUE: Axial computed tomography images were obtained through the head/brain without intravenous contrast. Radiation dose: Total exam DLP = 920.21 MGy-cm. This CT exam was performed using one or more of the following dose reduction techniques: Automated exposure control, adjustment of the mA and/or kV according to patient size, and/or use of iterative reconstruction technique. FINDINGS: HEMORRHAGE: No intracranial hemorrhage. BRAIN: Diffuse atrophy with prominence of the ventricles and sulci noted. No mass effect or edema. Dense intracranial atherosclerotic calcifications. Scattered white matter hypodensities, which are nonspecific, but often seen with chronic microvascular ischemic disease. Please note that MRI with diffusion imaging is more sensitive in the detection of acute ischemic event. VENTRICLES: No hydrocephalus. CALVARIUM: Unremarkable. PARANASAL SINUSES: Unremarkable as visualized. No significant inflammatory changes. MASTOID AIR CELLS: Unremarkable as visualized. No inflammatory changes. OTHER FINDINGS: None. IMPRESSION: No acute intracranial pathology identified. Generalized atrophy. Nonspecific white matter changes.
--- NOTE | 2017-02-18 13:34 | CT ---
PROCEDURE: CT Cervical Spine without contrast HISTORY: Fall COMPARISON: None available. TECHNIQUE: Axial computed tomography images were obtained of the cervical spine without the use of intravenous contrast. Coronal and sagittal reformatted images were created and reviewed. Radiation dose: Total exam DLP = 6001.50 mGy-cm. This CT exam was performed using one or more of the following dose reduction techniques: Automated exposure control, adjustment of the mA and/or kV according to patient size, and/or use of iterative reconstruction technique. FINDINGS: VERTEBRAE: Vertebral bodies are maintained in height. Atlantoaxial articulation and odontoid process are intact. Grade 1 anterolisthesis at C 5-6 likely degenerative in origin. . DISCS/SPINAL CANAL/NEURAL FORAMINA: Narrowing of the C6-7 intervertebral disc space with associated mild osteophyte formation, consistent with degenerative disc disease. Remaining disc spaces are maintained in height. There is moderate to severe neural foraminal stenosis at the left C6-7 neural foramen. PARASPINAL SOFT TISSUES: Unremarkable. OTHER FINDINGS: None. IMPRESSION: No evidence fracture. Grade 1 anterolisthesis C5-6, likely degenerative. Degenerative disc disease C6-7. Otherwise unremarkable.
--- NOTE | 2017-02-18 14:19 | RAD ---
Single view left shoulder Indication: Fall, arm pain Comparison: None available Findings: Calcification adjacent to the humeral head consistent with calcific tendinitis. Alignment cannot be adequately assessed without orthogonal views however there is no finding to suggest dislocation. Displaced transverse mid humeral shaft fracture. The remainder of the visualized osseous structures appear grossly intact. Soft tissue swelling. No evidence of radiopaque foreign body. Impression: A single view of the left shoulder as above. Displaced midshaft humeral fracture with associated soft tissue swelling. Calcific tendinitis left shoulder.
--- NOTE | 2017-02-18 14:30 | RAD ---
PROCEDURE: Radiographs of bilateral humeri. HISTORY: fall,arm pain COMPARISON: None. FINDINGS: BONES: Right humerus: No acute displaced fracture identified. Left humerus: Transverse displaced fracture of the mid humerus (approximately 1 shafts width displacement). Evidence of calcific tendinitis. SOFT TISSUES: Right humerus: Unremarkable. No evidence of radiopaque foreign body. Left humerus: Soft tissue swelling. No evidence of radiopaque foreign body. OTHER FINDINGS: None. IMPRESSION: Transverse displaced fracture of the mid left humerus (approximately 1 shafts width displacement). Soft tissue swelling. No acute displaced fracture of the right humerus.
--- NOTE | 2017-02-18 14:35 | RAD ---
Indication: Fall, arm pain Single view left elbow Comparison: None available Findings: Single lateral view of the left elbow without acute displaced fracture identified. Soft tissues appear grossly unremarkable. No evidence of radiopaque foreign body. Suboptimal positioning in order to assess for joint effusion. No definite large joint effusion appreciated. Impression: Limited single view without acute displaced fracture appreciated. If high clinical index of suspicion for occult fracture persists, cross-sectional imaging may be considered.
--- NOTE | 2017-02-18 16:10 | CP.PCM.CON ---
History of Present Illness - History of Present Illness History of Present Illness: Orthopaedic Consult Note for Dr. Womack 76 year old male with PMHx of HTN was seen at bedside for left humerus fracture. Patient states that today he was getting up to move his TV out of the sun, and fell. He admits to pain on his left arm, but states that after he got pain medication, he feels better. He denies any n/v/f/c/sob. Past Patient History - Infectious Disease Hx of Infectious Diseases: None - Tetanus Immunizations Tetanus Immunization: Unknown - Past Medical History & Family History Past Medical History?: Yes - Past Social History Smoking Status: Former Smoker - CARDIAC Hx Hypertension: Yes - PULMONARY Hx Respiratory Disorders: No - NEUROLOGICAL Hx Neurological Disorder: No - HEENT Hx HEENT Problems: No - RENAL Hx Chronic Kidney Disease: No - ENDOCRINE/METABOLIC Hx Endocrine Disorders: No - HEMATOLOGICAL/ONCOLOGICAL Hx Human Immunodeficiency Virus (HIV): No - INTEGUMENTARY Hx Dermatological Problems: No - MUSCULOSKELETAL/RHEUMATOLOGICAL Hx Musculoskeletal Disorders: No Hx Falls: No - GASTROINTESTINAL Hx Gastrointestinal Disorders: No - GENITOURINARY/GYNECOLOGICAL Hx Genitourinary Disorders: Yes - PSYCHIATRIC Hx Psychophysiologic Disorder: No Hx Substance Use: No - SURGICAL HISTORY Hx Appendectomy: Yes - ANESTHESIA Hx Anesthesia: Yes Hx Anesthesia Reactions: No Meds Home Medications: Home Medication List Medication Instructions Recorded Confirmed Type Acetaminophen [Tylenol 325mg tab] 650 mg PO Q4 PRN tab 02/20/17 Rx Acetaminophen [Tylenol 325mg tab] 650 mg PO Q6 PRN tab 02/20/17 Rx Ciprofloxacin HCl [Cipro] 500 mg PO BID #14 tablet 02/20/17 Rx Tamsulosin [Flomax] 0.4 mg PO HS #30 cap 02/20/17 Rx traMADol [Ultram] 50 mg PO Q6 PRN #20 tab 02/20/17 Rx Allergies/Adverse Reactions: Allergies Allergy/AdvReac Type Severity Reaction Status Date / Time No Known Allergies Allergy Verified 02/17/17 09:36 - Medications Medications: Current Medications Acetaminophen (Tylenol 325mg Tab) 650 mg PO Q4 PRN PRN Reason: Fever >100.4 F Acetaminophen (Tylenol 325mg Tab) 650 mg PO Q6 PRN PRN Reason: Pain, Mild (1-3) Last Admin: 02/18/17 15:44 Dose: 650 mg Amlodipine Besylate (Norvasc) 5 mg PO DAILY [facility] Last Admin: 02/18/17 08:59 Dose: 5 mg Enoxaparin Sodium (Lovenox) 40 mg SC DAILY [facility] PRN Reason: Protocol Last Admin: 02/18/17 08:59 Dose: 40 mg Ceftriaxone Sodium 1 gm/ (Sodium Chloride) 100 mls @ 100 mls/hr IVPB DAILY [facility] Last Admin: 02/18/17 11:48 Dose: 100 mls/hr Physical Exam - Constitutional Appears: Well, Non-toxic, No Acute Distress - Extremities Exam Additional comments: pain on palpation to right arm - Neurological Exam Neurological exam: Alert, Oriented x3 - Psychiatric Exam Psychiatric exam: Normal Affect, Normal Mood Results - Vital Signs Recent Vital Signs: Last Vital Signs Temp 98.5 F 02/18/17 08:39 Pulse 66 02/18/17 08:59 Resp 18 02/18/17 08:39 BP 122/72 02/18/17 08:59 Pulse Ox 95 02/18/17 08:39 - Labs Result Diagrams: 02/19/17 06:20 02/19/17 06:20 Labs: Laboratory Results - last 24 hr 02/17/17 02/18/17 02/18/17 15:50 05:30 05:30 WBC 14.7 H RBC 4.09 L Hgb 12.8 Hct 37.9 MCV 92.6 MCH 31.2 H MCHC 33.7 RDW 14.9 H Plt Count 147 MPV 9.1 Neut % (Auto) 83.3 H Lymph % (Auto) 6.9 L Towns % (Auto) 8.3 Eos % (Auto) 1.2 Baso % (Auto) 0.3 Neut # 12.3 H Lymph # 1.0 Towns # 1.2 H Eos # 0.2 Baso # 0.0 Sodium 139 Potassium 4.0 Chloride 109 H Carbon Dioxide 23 Anion Gap 11 BUN 25 H Creatinine 1.2 Est GFR ( Amer) > 60 Est GFR (Non-Af Amer) 59 Random Glucose 107 Calcium 8.2 L Influenza Typ A,B (EIA) Negative for flu a/b Assessment & Plan - Assessment and Plan (Free Text) Assessment: 76 year old male with left displaced humeral fracture Plan: patient examined and evaluated chart, labs, vitals reviewed discussed in detail with Dr. Vu radiograph iMPRESSION:Transverse displaced fracture of the mid left humerus ( approximately 1 shafts width displacement). Soft tissue swelling. splint applied to left upper extremity
[2017-02-19 07:37] LABS: PARTIAL THROMBOPLASTIN TIME 32.3 Seconds (25.6-37.1)
[2017-02-19 07:39] LABS: BLOOD UREA NITROGEN 18 mg/dl (9-20); CALCIUM 8.4 mg/dL (8.4-10.2); CARBON DIOXIDE 25 mmol/L (22-30); CHLORIDE 104 mmol/L (98-107); GFR AFRICAN-AMERICAN > 60; GLUCOSE,RANDOM 116 mg/dL (75-110); SODIUM 139 mmol/l (132-148)
[2017-02-19 07:52] LABS: BASO % 0.3 % (0.0-2.0); EOS # 0.2 K/uL (0.0-0.7); EOS % 1.5 % (0.0-4.0); HEMATOCRIT 37.8 % (35.0-51.0); LYMPH % 9.3 % (20.0-40.0); MEAN CELL VOLUME 92.5 fl (80.0-94.0); MEAN CORPUSCULAR HEMOGLOBIN 31.5 pg (27.0-31.0); MEAN CORPUSCULAR HGB CONC 34.1 g/dL (33.0-37.0); MONO # 0.8 K/uL (0.0-0.8); MONO % 7.8 % (0.0-10.0); NEUT # 8.5 K/uL (1.8-7.0); NEUT % 81.1 % (50.0-75.0); NRBC % 0.1 % (0.0-0.0); RED CELL DISTRIBUTION WIDTH 14.9 % (11.5-14.5); WHITE BLOOD COUNT 10.5 K/uL (4.8-10.8)
--- NOTE | 2017-02-19 08:51 | CP.PCM.PN ---
Subjective - Date & Time of Evaluation Date of Evaluation: 02/19/17 Time of Evaluation: 09:30 - Subjective Subjective: Patient seen and evaluated bedside. Complains of pain to left arm and frequent urination. Hemodynamically stable, afebrile last 24 hours WBC 10 K No acute issues overnight Objective - Vital Signs/Intake and Output Vital Signs (last 24 hours): Temp Pulse Resp BP Pulse Ox 98.2 F 71 18 126/76 95 02/19/17 08:29 02/19/17 08:29 02/19/17 08:29 02/19/17 08:29 02/19/17 08:29 - Medications Medications: Current Medications Acetaminophen (Tylenol 325mg Tab) 650 mg PO Q4 PRN PRN Reason: Fever >100.4 F Acetaminophen (Tylenol 325mg Tab) 650 mg PO Q6 PRN PRN Reason: Pain, Mild (1-3) Last Admin: 02/18/17 15:44 Dose: 650 mg Amlodipine Besylate (Norvasc) 5 mg PO DAILY [facility] Last Admin: 02/18/17 08:59 Dose: 5 mg Enoxaparin Sodium (Lovenox) 40 mg SC DAILY [facility] PRN Reason: Protocol Last Admin: 02/18/17 08:59 Dose: 40 mg Ceftriaxone Sodium 1 gm/ (Sodium Chloride) 100 mls @ 100 mls/hr IVPB Q12 [facility] Last Admin: 02/18/17 22:08 Dose: 100 mls/hr Morphine Sulfate (Morphine) 1 mg IVP Q4 PRN PRN Reason: Pain, severe (8-10) Tamsulosin HCl (Flomax) 0.4 mg PO HS [facility] Last Admin: 02/18/17 22:09 Dose: 0.4 mg Tramadol HCl (Ultram) 50 mg PO Q6 PRN PRN Reason: Pain, moderate (4-7) Zolpidem Tartrate (Ambien) 5 mg PO HS PRN PRN Reason: Sleep Last Admin: 02/18/17 22:12 Dose: 5 mg - Labs Labs: 02/19/17 06:20 02/19/17 06:20 PT 12.2 Seconds (9.8-13.1) 02/19/17 06:20 INR 1.1 (0.9-1.2) 02/19/17 06:20 APTT 32.3 Seconds (25.6-37.1) 02/19/17 06:20 - Constitutional Appears: Non-toxic, No Acute Distress - Head Exam Head Exam: ATRAUMATIC, NORMAL INSPECTION, NORMOCEPHALIC - Eye Exam Eye Exam: EOMI, Normal appearance, PERRL Pupil Exam: NORMAL ACCOMODATION - ENT Exam ENT Exam: Mucous Membranes Moist, Normal Exam - Neck Exam Neck Exam: Full ROM, Normal Inspection - Respiratory Exam Respiratory Exam: Clear to Ausculation Bilateral, NORMAL BREATHING PATTERN. absent: Rales, Rhonchi, Wheezes - Cardiovascular Exam Cardiovascular Exam: REGULAR RHYTHM, RRR, +S1, +S2. absent: JVD - GI/Abdominal Exam GI & Abdominal Exam: Soft, Normal Bowel Sounds. absent: Distended, Guarding, Tenderness, Rebound - Rectal Exam Rectal Exam: Deferred - Extremities Exam Extremities Exam: Normal Capillary Refill. absent: Calf Tenderness, Pedal Edema Additional comments: left arm dressing in place pulses present, warm to touch, capillary refill intact - Back Exam Back Exam: NORMAL INSPECTION - Neurological Exam Neurological Exam: Alert, Awake, CN II-XII Intact, Oriented x3 - Psychiatric Exam Psychiatric exam: Normal Affect, Normal Mood - Skin Skin Exam: Dry, Intact, Normal Color, Warm Assessment and Plan - Assessment and Plan (Free Text) Assessment: 76 y/o gent with hx of HTN, BPH, came in because of dysuria and fever, found to have UTI. He was admitted in Med Surg, started on IVF hydration and IV Ceftraixone. Yesterday he stood on a chair in an attempt to reposition the television in his room ( TV suspended up on the wall) and fell . He sustained Left midshaft Humeral displaced fracture. Ortho consulted . Planned for surgery on . 1. Sepsis sec to UTI Acute Pt came in febrile to 102, tachycardic normal lactate Urinalysis showed Pyuria, + leukoest Urine c/s positive for gram negative rods Blood c/s- with no growth so far Continue Ceftriaxone to 1 gram bid 2. Urinary tract infection Acute on IV rocephin 3. Left humeral fracture Acute Xray of humerus showed midshaft displaced fracture Shoulder Xray, Elbow xray ; neg CT of head and CT spine : negative for an fractures Ortho consult with Dr Womack appreciated Plan for OR on Pt's daughter informed of fall and , xray result and treatment plan Cardio consult for preop eval ECHO ordered 4. HTN (hypertension) Chronic cont Norvacs 5. BPH on Flomax 6 DVT prophylaxis Lovenox and SCD
[2017-02-19] MEDS: Enoxaparin 40 mg Syringe SC SCH (09:18)
--- NOTE | 2017-02-19 12:39 | RAD ---
PROCEDURE: Radiographs of the left humerus. HISTORY: left humerus fx COMPARISON: Comparison made with prior study 02/18/2017. FINDINGS: BONES: Re- demonstrated is a transverse fracture extending through the proximal 1/3 left humerus with approximately 1 shaft width displacement SOFT TISSUES: Normal. OTHER FINDINGS: None. IMPRESSION: No change transverse fracture traversing the proximal 1/3 of the left humerus as above
[2017-02-19 16:45] VITALS: RESP 20
--- NOTE | 2017-02-19 17:58 | RAD ---
HISTORY: pre op eval COMPARISON: Comparison chest 01/11/2027 TECHNIQUE: Chest PA and lateral FINDINGS: LUNGS: Poor inspiration with low lung volumes, crowded bronchovascular markings and mild bibasilar atelectasis. . Slight elevation lateral aspect left hemidiaphragm. Questionable minimal blunting left CP angle PLEURA: No apparent pneumothorax apparent. CARDIOVASCULAR: Heart is borderline/mildly enlarged OSSEOUS STRUCTURES: Transverse fracture extending through the proximal 1/3 of the left humerus seen on lateral projection. VISUALIZED UPPER ABDOMEN: Normal. OTHER FINDINGS: None. IMPRESSION: Poor inspiration with low lung volumes, crowded bronchovascular markings and mild bibasilar atelectasis. . Slight elevation lateral aspect left hemidiaphragm. Questionable minimal blunting left CP angle
--- NOTE | 2017-02-19 21:39 | CP.PCM.PN ---
Subjective - Date & Time of Evaluation Date of Evaluation: 02/19/17 Time of Evaluation: 13:30 - Subjective Subjective: No Chest pain or SOB VVS stable Chest clear Heart S1S2 reg Abd soft Ext no Edema Awaiting Echo NB. Dictation system is down and that limited my note Objective - Vital Signs/Intake and Output Vital Signs (last 24 hours): Temp Pulse Resp BP Pulse Ox 98.7 F 77 20 147/80 96 02/19/17 16:44 02/19/17 16:44 02/19/17 16:44 02/19/17 16:44 02/19/17 16:44 - Medications Medications: Current Medications Acetaminophen (Tylenol 325mg Tab) 650 mg PO Q4 PRN PRN Reason: Fever >100.4 F Acetaminophen (Tylenol 325mg Tab) 650 mg PO Q6 PRN PRN Reason: Pain, Mild (1-3) Last Admin: 02/18/17 15:44 Dose: 650 mg Amlodipine Besylate (Norvasc) 5 mg PO DAILY [facility] Last Admin: 02/19/17 09:19 Dose: 5 mg Enoxaparin Sodium (Lovenox) 40 mg SC DAILY [facility] PRN Reason: Protocol Last Admin: 02/19/17 09:18 Dose: 40 mg Ceftriaxone Sodium 1 gm/ (Sodium Chloride) 100 mls @ 100 mls/hr IVPB Q12 [facility] Last Admin: 02/19/17 20:37 Dose: 100 mls/hr Morphine Sulfate (Morphine) 1 mg IVP Q4 PRN PRN Reason: Pain, severe (8-10) Tamsulosin HCl (Flomax) 0.4 mg PO HS [facility] Last Admin: 02/18/17 22:09 Dose: 0.4 mg Tramadol HCl (Ultram) 50 mg PO Q6 PRN PRN Reason: Pain, moderate (4-7) Last Admin: 02/19/17 20:35 Dose: 50 mg Zolpidem Tartrate (Ambien) 5 mg PO HS PRN PRN Reason: Sleep Last Admin: 02/18/17 22:12 Dose: 5 mg - Labs Labs: 02/19/17 06:20 02/19/17 06:20 PT 12.2 Seconds (9.8-13.1) 02/19/17 06:20 INR 1.1 (0.9-1.2) 02/19/17 06:20 APTT 32.3 Seconds (25.6-37.1) 02/19/17 06:20
[2017-02-20] MEDS: Enoxaparin 40 mg Syringe SC SCH (08:17)
--- NOTE | 2017-02-20 11:48 | CARD ---
APPROVED REPORT EXAM: Two-dimensional and M-mode echocardiogram with Doppler and color Doppler. Other Information Quality : AverageRhythm : NSR Technically limited study due to Unable to manuver patient due to fractured shoulder INDICATION Pre-Op 2D DIMENSIONS IVSd1.05 (0.7-1.1cm)LVDd3.91 (3.9-5.9cm) LVOT Diameter2.42 (1.8-2.4cm)PWd1.01 (0.7-1.1cm) IVSs1.25 (0.8-1.2cm)LVDs2.39 (2.5-4.0cm) FS (%) 38.9 %PWs1.28 (0.8-1.2cm) M-Mode DIMENSIONS Left Atrium (MM)4.15 (2.5-4.0cm)IVSd1.06 (0.7-1.1cm) Aortic Root3.47 (2.2-3.7cm)LVDd6.12 (4.0-5.6cm) Aortic Cusp Exc.1.88 (1.5-2.0cm)PWd1.12 (0.7-1.1cm) IVSs1.76 cmFS (%) 60 % LVDs2.44 (2.0-3.8cm)PWs1.76 cm Mitral Valve MV E Cflwzchi00.2cm/sMV DECEL [id number] A Rmfjjjhf91.2cm/s MV [id number] ratio1.0MVA (PHT)4.58cm2 TDI E/Lateral E'0.0E/Medial E'0.0 Tricuspid Valve TR Peak [id number]/sRAP [id number] Peak Gr.24mmHg [id number] LEFT VENTRICLE The left ventricle is normal size. There is normal left ventricular wall thickness. The left ventricular function is normal. The left ventricular ejection fraction is 60% There is normal LV segmental wall motion. The left ventricular diastolic function is normal. No left ventricle thrombus noted on this study. There is no ventricular septal defect visualized. There is no left ventricular aneurysm. There is no mass noted in the left ventricle. RIGHT VENTRICLE The right ventricle is normal size. There is normal right ventricular wall thickness. The right ventricular systolic function is normal. ATRIA The left atrium size is normal. The right atrium size is normal. The interatrial septum is intact with no evidence for an atrial septal defect. AORTIC VALVE The aortic valve is normal in structure and function. No aortic regurgitation is present. There is no aortic valvular stenosis. There is no aortic valvular vegetation. MITRAL VALVE The mitral valve is normal in structure and function. There is no evidence of mitral valve prolapse. There is no mitral valve stenosis. There is no mitral valve regurgitation noted. TRICUSPID VALVE The tricuspid valve is normal in structure and function. There is no tricuspid valve regurgitation noted. There is no tricuspid valve prolapse or vegetation. There is no tricuspid valve stenosis. PULMONIC VALVE The pulmonary valve is normal in structure and function. There is no pulmonic valvular regurgitation. There is no pulmonic valvular stenosis. GREAT VESSELS The aortic root is normal in size. The ascending aorta is normal in size. The IVC is normal in size and collapses >50% with inspiration. PERICARDIAL EFFUSION The pericardium appears normal. There is no pleural effusion. <Conclusion> Normal Echocardiogram
--- NOTE | 2017-02-20 13:17 | CP.PCM.PN ---
Subjective - Date & Time of Evaluation Date of Evaluation: 02/20/17 Time of Evaluation: 13:14 - Subjective Subjective: no c/p or sob Objective - Vital Signs/Intake and Output Vital Signs (last 24 hours): Temp Pulse Resp BP Pulse Ox 98.9 F 74 20 144/81 93 L 02/20/17 07:33 02/20/17 08:16 02/20/17 07:33 02/20/17 08:16 02/20/17 07:33 - Medications Medications: Current Medications Acetaminophen (Tylenol 325mg Tab) 650 mg PO Q4 PRN PRN Reason: Fever >100.4 F Acetaminophen (Tylenol 325mg Tab) 650 mg PO Q6 PRN PRN Reason: Pain, Mild (1-3) Last Admin: 02/18/17 15:44 Dose: 650 mg Amlodipine Besylate (Norvasc) 5 mg PO DAILY [facility] Last Admin: 02/20/17 08:16 Dose: 5 mg Enoxaparin Sodium (Lovenox) 40 mg SC DAILY [facility] PRN Reason: Protocol Last Admin: 02/20/17 08:17 Dose: 40 mg Ceftriaxone Sodium 1 gm/ (Sodium Chloride) 100 mls @ 100 mls/hr IVPB Q12 [facility] Last Admin: 02/20/17 08:17 Dose: 100 mls/hr Morphine Sulfate (Morphine) 1 mg IVP Q4 PRN PRN Reason: Pain, severe (8-10) Tamsulosin HCl (Flomax) 0.4 mg PO HS [facility] Last Admin: 02/19/17 22:43 Dose: 0.4 mg Tramadol HCl (Ultram) 50 mg PO Q6 PRN PRN Reason: Pain, moderate (4-7) Last Admin: 02/20/17 10:10 Dose: 50 mg Zolpidem Tartrate (Ambien) 5 mg PO HS PRN PRN Reason: Sleep Last Admin: 02/19/17 22:43 Dose: 5 mg - Labs Labs: 02/19/17 06:20 02/19/17 06:20 PT 12.2 Seconds (9.8-13.1) 02/19/17 06:20 INR 1.1 (0.9-1.2) 02/19/17 06:20 APTT 32.3 Seconds (25.6-37.1) 02/19/17 06:20 - Eye Exam Eye Exam: EOMI, Normal appearance - Neck Exam Neck Exam: Normal Inspection - Respiratory Exam Respiratory Exam: Decreased Breath Sounds - Cardiovascular Exam Cardiovascular Exam: REGULAR RHYTHM - GI/Abdominal Exam GI & Abdominal Exam: Normal Bowel Sounds Assessment and Plan - Assessment and Plan (Free Text) Assessment: S/p left humerus Fx Normal ECho EKG NSR old IWMI OK with ORIF cardiacwise Discussed with Dr. Villegas
--- NOTE | 2017-02-20 15:29 | CP.PCM.DIS ---
Provider - Provider Date of Admission: 02/18/17 16:11 Attending physician: Nils Farrell MD Primary care physician: Dr Ashby Consults: Ortho: Dr Womack Cardio: Dr Mendosa Time Spent in preparation of Discharge (in minutes): 40 Diagnosis - Discharge Diagnosis (1) Sepsis Status: Acute (2) Urinary tract infection Status: Acute (3) Left humeral fracture Status: Acute (4) HTN (hypertension) Status: Chronic (5) DVT prophylaxis Status: Acute Hospital Course - Lab Results Lab Results: Most Recent Lab Values WBC 10.5 K/uL (4.8-10.8) 02/19/17 06:20 RBC 4.08 Mil/uL (4.40-5.90) L 02/19/17 06:20 Hgb 12.9 g/dL (12.0-18.0) 02/19/17 06:20 Hct 37.8 % (35.0-51.0) 02/19/17 06:20 MCV 92.5 fl (80.0-94.0) 02/19/17 06:20 MCH 31.5 pg (27.0-31.0) H 02/19/17 06:20 MCHC 34.1 g/dL (33.0-37.0) 02/19/17 06:20 RDW 14.9 % (11.5-14.5) H 02/19/17 06:20 Plt Count 169 K/uL (130-400) 02/19/17 06:20 MPV 9.0 fl (7.2-11.7) 02/19/17 06:20 Neut % (Auto) 81.1 % (50.0-75.0) H 02/19/17 06:20 Lymph % (Auto) 9.3 % (20.0-40.0) L 02/19/17 06:20 [place] % (Auto) 7.8 % (0.0-10.0) 02/19/17 06:20 Eos % (Auto) 1.5 % (0.0-4.0) 02/19/17 06:20 Baso % (Auto) 0.3 % (0.0-2.0) 02/19/17 06:20 Neut # 8.5 K/uL (1.8-7.0) H 02/19/17 06:20 Lymph # 1.0 K/uL (1.0-4.3) 02/19/17 06:20 [place] # 0.8 K/uL (0.0-0.8) 02/19/17 06:20 Eos # 0.2 K/uL (0.0-0.7) 02/19/17 06:20 Baso # 0.0 K/uL (0.0-0.2) 02/19/17 06:20 Neutrophils % (Manual) 91 % (42-75) H 02/17/17 10:20 Lymphocytes % (Manual) 6 % (20-50) L 02/17/17 10:20 Monocytes % (Manual) 3 % (0-10) 02/17/17 10:20 Toxic Granulation Present 02/17/17 10:20 Platelet Estimate Normal (NORMAL) 02/17/17 10:20 Hypochromasia (manual) Slight 02/17/17 10:20 Anisocytosis (manual) Slight 02/17/17 10:20 PT 12.2 Seconds (9.8-13.1) 02/19/17 06:20 INR 1.1 (0.9-1.2) 02/19/17 06:20 APTT 32.3 Seconds (25.6-37.1) 02/19/17 06:20 pO2 60 mm/Hg (30-55) H 02/17/17 11:22 VBG pH 7.66 (7.32-7.43) H* 02/17/17 11:22 VBG pCO2 23 mmHg (40-60) L 02/17/17 11:22 VBG HCO3 29.7 mmol/L 02/17/17 11:22 VBG Total CO2 26.6 mmol/L (22-28) 02/17/17 11:22 VBG O2 Sat (Calc) 99.5 % (40-65) H 02/17/17 11:22 VBG Base Excess 6.3 mmol/L (0.0-2.0) H 02/17/17 11:22 VBG Potassium 6.1 mmol/L (3.6-5.2) H 02/17/17 11:22 A-a O2 Difference 61.0 mm/Hg 02/17/17 11:22 Sodium 191.0 mmol/L (132-148) H* 02/17/17 11:22 Chloride 117.0 mmol/L (98-107) H 02/17/17 11:22 Glucose 112 mg/dL (75-110) H 02/17/17 11:22 Lactate 1.3 mmol/L (0.7-2.1) 02/17/17 11:22 FiO2 21.0 % 02/17/17 11:22 Crit Value Called To Bonifacio yost 02/17/17 11:22 Crit Value Called By 15 02/17/17 11:22 Crit Value Read Back Y 02/17/17 11:22 Blood Gas Notified Time 1311 02/17/17 11:22 Sodium 139 mmol/l (132-148) 02/19/17 06:20 Potassium 4.0 MMOL/L (3.6-5.0) 02/19/17 06:20 Chloride 104 mmol/L (98-107) 02/19/17 06:20 Carbon Dioxide 25 mmol/L (22-30) 02/19/17 06:20 Anion Gap 14 (10-20) 02/19/17 06:20 BUN 18 mg/dl (9-20) 02/19/17 06:20 Creatinine 1.1 mg/dL (0.8-1.5) 02/19/17 06:20 Est GFR ( Amer) > 60 02/19/17 06:20 Est GFR (Non-Af Amer) > 60 02/19/17 06:20 Random Glucose 116 mg/dL (75-110) H 02/19/17 06:20 Calcium 8.4 mg/dL (8.4-10.2) 02/19/17 06:20 Total Bilirubin 0.5 mg/dl (0.2-1.3) 02/17/17 10:55 AST 25 U/L (17-59) 02/17/17 10:55 ALT 42 U/L (21-72) 02/17/17 10:55 Alkaline Phosphatase 58 U/L (38-126) 02/17/17 10:55 Total Protein 6.7 G/DL (6.3-8.2) 02/17/17 10:55 Albumin 3.6 g/dL (3.5-5.0) 02/17/17 10:55 Globulin 3.2 gm/dL (2.2-3.9) 02/17/17 10:55 Albumin/Globulin Ratio 1.1 (1.0-2.1) 02/17/17 10:55 Venous Blood Potassium 6.1 mmol/L (3.6-5.2) H 02/17/17 11:22 Urine Color Yellow (YELLOW) 02/17/17 10:20 Urine Clarity Cloudy (Clear) 02/17/17 10:20 Urine pH 6.0 (5.0-8.0) 02/17/17 10:20 Ur Specific [place] 1.026 (1.003-1.030) 02/17/17 10:20 Urine Protein 100 mg/dL (NEGATIVE) 02/17/17 10:20 Urine Glucose (UA) Neg mg/dL (Normal) 02/17/17 10:20 Urine Ketones 20 mg/dL (NEGATIVE) 02/17/17 10:20 Urine Blood Small (NEGATIVE) 02/17/17 10:20 Urine Nitrate Positive (NEGATIVE) H 02/17/17 10:20 Urine Bilirubin Negative (NEGATIVE) 02/17/17 10:20 Urine Urobilinogen 0.2-1.0 mg/dL (0.2-1.0) 02/17/17 10:20 Ur Leukocyte Esterase Large Kari/uL (Negative) 02/17/17 10:20 Urine RBC (Auto) 10 /hpf (0-3) H 02/17/17 10:20 Urine Microscopic WBC 229 /hpf (0-5) H 02/17/17 10:20 Urine Bacteria Many (<OCC) H 02/17/17 10:20 Influenza Typ A,B (EIA) Negative for flu a/b (NEGATIVE) 02/17/17 15:50 - Hospital Course Hospital Course: 76 y/o gent with hx of HTN, BPH, came in because of dysuria and fever, found to have UTI. He was admitted in Med Surg, started on IVF hydration and IV Ceftraixone. On 02/18 he stood on a chair in an attempt to reposition the television in his room ( TV suspended up on the wall) and fell . He sustained Left midshaft Humeral displaced fracture. Ortho consulted . Planned for surgery as outpt next wk 1. Sepsis sec to UTI Acute Pt came in febrile to 102, tachycardic normal lactate Urinalysis showed Pyuria, + leukoest Urine c/s: E coli Blood c/s- with no growth so far received Ceftriaxone 1 gram bid IV will d/c pt home on PO Cipro for 1 more week 2. Urinary tract infection Acute on IV rocephin as above 3. Left humeral fracture Acute Xray of humerus showed midshaft displaced fracture Immobilizer in place Shoulder Xray, Elbow xray ; neg CT of head and CT spine : negative for an fractures Ortho consult with Dr Womack appreciated Plan for OR as outpt - next Pt's daughter informed of fall and , xray result and treatment plan Cardio consult for preop eval- pt cleared for surgery ECHO :normal wall motion and LV fxn PT/OT consulted 4. HTN (hypertension) Chronic cont Norvasc 5. BPH on Flomax 6 DVT prophylaxis Lovenox and SCD Discharge Exam - Head Exam Head Exam: ATRAUMATIC, NORMAL INSPECTION, NORMOCEPHALIC - Eye Exam Eye Exam: EOMI, Normal appearance Pupil Exam: NORMAL ACCOMODATION - ENT Exam ENT Exam: Mucous Membranes Moist, Normal External Ear Exam - Neck Exam Neck exam: Full Rom - Respiratory Exam Respiratory Exam: NORMAL BREATHING PATTERN. absent: Respiratory Distress - Cardiovascular Exam Cardiovascular Exam: REGULAR RHYTHM, +S1, +S2 - GI/Abdominal Exam GI & Abdominal Exam: Normal Bowel Sounds, Soft. absent: Tenderness - Extremities Exam Extremities exam: full ROM, normal capillary refill, pedal pulses present Additional comments: left arm with immobilizer and sling full ROM of all extremities no pain on ROM of hip no spinal tenderness - Back Exam Back exam: FULL ROM. absent: CVA tenderness (L), CVA tenderness (R), paraspinal tenderness, vertebral tenderness - Neurological Exam Neurological exam: Alert, CN II-XII Intact, Normal Gait, Oriented x3, Reflexes Normal - Psychiatric Exam Psychiatric exam: Normal Affect, Normal Mood - Skin Skin Exam: Dry, Normal Color, Warm Discharge Plan - Discharge Medications Prescriptions: Ciprofloxacin HCl [Cipro] 500 mg PO BID #14 tablet Tamsulosin [Flomax] 0.4 mg PO HS #30 cap traMADol [Ultram] 50 mg PO Q6 PRN #20 tab PRN Reason: Pain, Moderate (4-7) - Follow Up Plan Condition: GOOD Disposition: HOME/ ROUTINE Instructions: Urinary Tract Infection in Men (ED) Additional Instructions: ff up with PMD isabel - Dr Ashby Return to Same Day Surgery on morning February 28, 2017 for surgery of Humeral Fracture NPO from midnight Saturday may take Amlodipine with little sip of water early am Home PT/OT. Referrals: Bertrand Coleman MD [Staff Provider] - Andrés Womack MD [Medical Doctor] - Moiz Ashby MD [Family Provider] -
[2017-02-20 16:09] VITALS: BP 121/70; PULSE 79; TEMP 98.5; O2SAT 96
--- NOTE | 2017-02-21 12:01 | CARD ---
APPROVED REPORT EKG Measurement Heart [id number] <Conclusion> Normal sinus rhythm Inferior infarct, age undetermined Abnormal ECG
--- NOTE | 2017-02-21 12:23 | RAD ---
PROCEDURE: Radiographs of the pelvis and bilateral hips HISTORY: fall, pain COMPARISON: None. FINDINGS: BONES: Pelvis: Unremarkable. Right hip:Unremarkable. Left hip:Unremarkable. JOINTS: Right hip: Mild degenerative changes. Left hip: Symmetrical degenerative changes. Sacroiliac Joints: Unremarkable. Pubic symphysis: Unremarkable. SOFT TISSUES: Normal. OTHER FINDINGS: None. IMPRESSION: No acute findings related to/accounting for the clinical presentation.
--- NOTE | 2017-02-21 12:25 | RAD ---
PROCEDURE: Radiographs of the Lumbar Spine. HISTORY: fall,pain COMPARISON: No prior. FINDINGS: BONES: Scoliosis, secondary degenerative change at multiple levels. No listhesis. No fracture. DISC SPACES: Multilevel degenerative changes including disc space narrowing, non marginal osteophyte formation. OTHER FINDINGS: None. IMPRESSION: No acute findings related to/accounting for the clinical presentation.
== END 2017-02-20 19:33 | disposition home health service (06) | DRG 872 ==
LOC: H.ER 09:07 → INTOOBSV 14:12 → H.ERHOLD 14:12 → INTOOBSV 16:11 → OBSVTOIN 16:11 → H.MEDSURG1 16:52 → OBSVTOIN 02-18 16:11
DX: A41.9 Sepsis, unspecified organism (principal); N39.0 Urinary tract infection, site not specified; S42.392A Other fracture of shaft of left humerus, initial encounter for closed fracture; I10 Essential (primary) hypertension; I25.10 Atherosclerotic heart disease of native coronary artery without angina pectoris; N40.0 Benign prostatic hyperplasia without lower urinary tract symptoms; W07.XXXA Fall from chair, initial encounter; Y93.9 Activity, unspecified; Y92.9 Unspecified place or not applicable; Y99.9 Unspecified external cause status; Z87.891 Personal history of nicotine dependence; R00.0 Tachycardia, unspecified; R35.0 Frequency of micturition; R30.9 Painful micturition, unspecified